=== PATIENT | female | born 1960 | race Caucasian/White ===

== ENCOUNTER 2021-02-09 15:35 | Emergency (ER) | payer MEDICARE, OTHER ==
[~2021-02-09 15:35] MED LIST: ALBUTEROL2.5 MG/3 M NEB; ALPRAZOLAM2 MG PO; CERTAGEN1 EACH PO; IBUPROFEN400 MG PO; MEDROL 4MG DOSEP4 MG PO; NIFEREX150 MG PO; PEPCID AC20 MG PO; SILVADENE20 G1 TOP; TAMIFLU 75MG CA75 MG PO; TESSALON PERLE100 MG PO; VENTOLIN HFA IN18 GM INH; VOLTAREN **OUT75 MG PO; ZOFRAN4 MG PO
== END 2021-02-09 18:13 | disposition home or self-care (01) ==
LOC: FER 15:35
DX: Z48.01 Encounter for change or removal of surgical wound dressing (principal); Z98.84 Bariatric surgery status; Z97.8 Presence of other specified devices; Z91.048 Other nonmedicinal substance allergy status
CPT/HCPCS: 99283

== ENCOUNTER 2021-04-02 08:49 | Inpatient (IN) | payer MEDICARE, OTHER ==
[~2021-04-02] VITALS: Ht 160 cm; Wt 42.4 kg
[2021-04-02 10:14] LABS: BILIRUBIN NEGATIVE (NEGATIVE); BLOOD NEGATIVE Ery/uL (NEGATIVE); CLARITY CLEAR (CLEAR); COLOR YELLOW (YELLOW); GLUCOSE (U) NORMAL (NORMAL); LEUKOCYTES NEGATIVE Leu/uL (NEGATIVE); NITRITE NEGATIVE (NEGATIVE); PROTEIN NEGATIVE (NEGATIVE); SPECIFIC GRAVITY 1.015 (1.001-1.030); UROBILINOGEN 0.2 mg/dL (0.2-1.0)
[2021-04-02 11:06] LABS: BASOPHIL 1.6 % (0-2); HCT 32.8 % (37.0-47.0); HGB 9.7 g/dl (12.5-16.0); LYMPHOCYTE 26.7 % (15-48); MCH 26.9 pg (25.0-31.0); MCHC 29.6 g/dL (32.0-36.0); MCV 90.9 fL (78.0-100.0); NRBC 0; PLT 242 K/uL (150-400); RBC 3.61 M/uL (4.20-5.40); RDW 14.8 % (11.5-14.0); WBC 3.1 K/uL (4.0-10.5)
[2021-04-02 11:18] LABS: ALBUMIN 3.2 g/dL (3.4-5.0); BILIRUBIN - TOTAL 0.2 mg/dL (0.2-1.0); BUN/CREAT RATIO (CALC) 15.5 RATIO; CREATININE 0.58 mg/dL (0.51-0.95); POTASSIUM 4.8 mmol/L (3.5-5.1); TOTAL PROTEIN 6.2 g/dL (6.4-8.2)
[2021-04-02] MEDS ORDERED: XANAX0.5 MG PO (13:39)
[2021-04-02] MEDS ORDERED: GABAPENTIN300 MG PO (13:40)
[2021-04-03 05:37] LABS: BASOPHIL 1.1 % (0-2); EOSINOPHIL 2.8 % (0-5); HCT 30.9 % (37.0-47.0); HGB 9.2 g/dl (12.5-16.0); LYMPHOCYTE 37.3 % (15-48); MCH 26.7 pg (25.0-31.0); MCHC 29.8 g/dL (32.0-36.0); MCV 89.6 fL (78.0-100.0); MONOCYTE 9.7 % (0-12); MPV 9.5 fL (6.0-9.5); NEUTROPHIL 49.1 % (41-80); NRBC 0; PLT 264 K/uL (150-400); RBC 3.45 M/uL (4.20-5.40); RDW 14.8 % (11.5-14.0); WBC 3.5 K/uL (4.0-10.5)
[2021-04-03 06:19] LABS: BUN/CREAT RATIO (CALC) 20.8 RATIO; CREATININE 0.53 mg/dL (0.51-0.95); FOLIC ACID (SERUM) 14.5 ng/mL (8.6-58.9); POTASSIUM 4.3 mmol/L (3.5-5.1)
[2021-04-04 09:35] LABS: ALBUMIN 3.6 g/dL (3.4-5.0); ALKALINE PHOSHATASE 105 U/L (46-116); ALT 28 U/L (14-59); AST 29 U/L (15-37); BILIRUBIN - TOTAL 0.2 mg/dL (0.2-1.0); BUN 9 mg/dL (7-18); BUN/CREAT RATIO (CALC) 13.8 RATIO; C-REACTIVE PROTEIN < 0.20 mg/dL (<=0.90); CHLORIDE 109 mmol/L (98-107); CO2 (BICARBONATE) 32 mmol/L (21-32); CREATININE 0.65 mg/dL (0.51-0.95); GLOBULIN (CALCULATION) 3.3 g/dL; GLUCOSE 91 mg/dL (74-106); POTASSIUM 4.5 mmol/L (3.5-5.1); TOTAL PROTEIN 6.9 g/dL (6.4-8.2)
[2021-04-04] MEDS ORDERED: B12-FOLIC ACID1 EACH PO (17:01)
[2021-04-05 06:40] LABS: BASOPHIL 1.4 % (0-2); EOSINOPHIL 2.1 % (0-5); HCT 29.2 % (37.0-47.0); HGB 8.7 g/dl (12.5-16.0); LYMPHOCYTE 24.1 % (15-48); MCH 26.8 pg (25.0-31.0); MCHC 29.8 g/dL (32.0-36.0); MCV 89.8 fL (78.0-100.0); MONOCYTE 9.2 % (0-12); MPV 9.5 fL (6.0-9.5); NEUTROPHIL 62.7 % (41-80); NRBC 0; PLT 218 K/uL (150-400); RBC 3.25 M/uL (4.20-5.40); RDW 15.2 % (11.5-14.0); WBC 4.4 K/uL (4.0-10.5)
[2021-04-05 07:05] LABS: BUN/CREAT RATIO (CALC) 12.3 RATIO; CREATININE 0.57 mg/dL (0.51-0.95); POTASSIUM 3.8 mmol/L (3.5-5.1)
[2021-04-05 20:16] LABS: HGB 9.1 g/dL (12.5-16.0)
[2021-04-06 09:59] LABS: ALBUMIN 2.7 g/dL (3.4-5.0); BILIRUBIN - TOTAL 0.1 mg/dL (0.2-1.0); CREATININE 0.5 mg/dL (0.51-0.95); GLOBULIN (CALCULATION) 2.4 g/dL; POTASSIUM 3.7 mmol/L (3.5-5.1); TOTAL PROTEIN 5.1 g/dL (6.4-8.2)
[2021-04-07 05:19] LABS: BASOPHIL 0.8 % (0-2); EOSINOPHIL 1.2 % (0-5); HCT 27.2 % (37.0-47.0); LYMPHOCYTE 25.3 % (15-48); MCH 26.8 pg (25.0-31.0); MCHC 29.4 g/dL (32.0-36.0); MCV 91.3 fL (78.0-100.0); MPV 9.2 fL (6.0-9.5); NEUTROPHIL 64.5 % (41-80); NRBC 0; PLT 174 K/uL (150-400); RBC 2.98 M/uL (4.20-5.40); RDW 15.8 % (11.5-14.0)
[2021-04-07 05:35] LABS: BUN/CREAT RATIO (CALC) 13.5 RATIO; CREATININE 0.52 mg/dL (0.51-0.95); POTASSIUM 3.7 mmol/L (3.5-5.1)
== END 2021-04-07 13:00 | disposition home or self-care (01) | DRG 391 ==
LOC: FER 08:49 → FMS 11:44 → FICU 04-04 12:37 → FMS 04-06 08:34 → FICU 04-06 08:34 → FMS 04-06 08:34
PROVIDERS: Allergy & Immunology Allergy; Internal Medicine; ADMIT Internal Medicine
PROC: 3E033XZ Introduction of Vasopressor into Peripheral Vein, Percutaneous Approach (ICD-10-PCS; principal; 2021-04-05)
PROC: 05HY33Z Insertion of Infusion Device into Upper Vein, Percutaneous Approach (ICD-10-PCS; 2021-04-05)
DX: K91.2 Postsurgical malabsorption, not elsewhere classified (principal); I21.A1 Myocardial infarction type 2; T88.6XXA Anaphylactic reaction due to adverse effect of correct drug or medicament properly administered, initial encounter; Z20.822 Contact with and (suspected) exposure to COVID-19; D50.9 Iron deficiency anemia, unspecified; D51.3 Other dietary vitamin B12 deficiency anemia; K59.00 Constipation, unspecified; I95.2 Hypotension due to drugs; F41.9 Anxiety disorder, unspecified; K58.9 Irritable bowel syndrome, unspecified; R55 Syncope and collapse; J45.909 Unspecified asthma, uncomplicated; F32.A Depression, unspecified; G89.4 Chronic pain syndrome; Z96.652 Presence of left artificial knee joint; Y92.239 Unspecified place in hospital as the place of occurrence of the external cause; Z90.49 Acquired absence of other specified parts of digestive tract; Z90.3 Acquired absence of stomach [part of]; Z88.5 Allergy status to narcotic agent; Z88.6 Allergy status to analgesic agent; Z91.048 Other nonmedicinal substance allergy status
CPT/HCPCS: 36415; 74250; 80048; 80053; 81003; 82607; 82728; 82746; 83516; 83540; 83690; 83880; 84443; 84484; 85018; 85025; 86140; 93005; 97166; 97530; G0378; J0171; J1650; J2405; J2916; J3420; J7050; J7070; J7120; Q0162; U0002